=== PATIENT | female | born 1955 | race Caucasian/White ===

== ENCOUNTER 2025-08-03 09:10 | Outpatient (REF) | payer BC, SELFPAY ==
--- NOTE | ~2025-08-03 | XR_ITS ---
EXAMINATION: XR CHEST CLINICAL INFORMATION: R05.9 - Cough, unspecified COMPARISON: None available. TECHNIQUE: PA and lateral views FINDINGS: Pulmonary reticular pattern. No hyperinflation. No consolidation, pleural fissure pneumothorax. Cardiomediastinal silhouette size is normal. Calcified deformity mid thoracic spine multilevel thoracolumbar spondylosis. S-shaped curvature of the thoracic spine. Vascular clips right upper abdomen likely laparoscopic cholecystectomy. Patient's large body habitus/obesity. XR/XR chest 2V IMPRESSION: Probable chronic interstitial lung disease without acute airspace disease. Electronically signed by: Lucius Rosa MD 08/03/2025 10:42 AM EST
[2025-08-03 14:36] LABS: Resp Syncy Virus RNA Qual PCR NEGATIVE (Negative); SARS COV2 PCR INHOUSE NEGATIVE (Negative)
--- OUTSIDE RECORDS SUMMARY | 2025-08-03 14:44 | XMS_ITS | Data Portability ---
Author Organization [place] - [facility], Allergy Address [address] [place] [id number] Care Team Providers Care Director Experimental Medicine Name Role Phone GRACIELA CURRAN Referring Provider Assessment Encounter Date Assessment Date Assessment LastModified by Organization Details LastModified Time 03/06/2025 03/06/2025 normal audiometric testing was reviewed. exam is also benign with no effusion present. no specific intervention is advised at this time. communication strategies with her mother in a different room were discussed [email or web address] Not available 03/06/2025 11:24:02 Plan of Treatment Reminders Order Date Submit Date Provider Last Modified By Organization Details Last Modified Time Details Appointments None record ed. Lab None record ed. Referral None record ed. Procedures None record ed. Surgeries None record ed. Imaging None record ed. Medication Orders None record ed. Patient TargetsNo targets recorded. Patient InstructionsNo instructions recorded. Reason for Referral None Reported. Results Created Date Observation Date Name Description Value Unit Range Abnormal Flag Note LastModifiedBy Organization Detail LastModifiedTime 03/06/20 25 audio gram No observ ation record ed. BARCODE Not Available 2024 15:48:51 Result Notes None recorded. Problems Name Problem SNOMED Code Status Onset Date Resolution Date Notes Provider Name and Address Organization Details Recorded Time Abnormal auditory perception [id number] Active SOFI MARLOW [address] [address], [place], [phone] [facility] - [facility] 10:42:23 Problem Notes None recorded. Procedures Surgical History Date Name Laterality Status Provider Name and Address Organization Details Recorded Time 03/06/2025 Comp Audio with Tymps - 76448 & 83548 completed SOFI ALBA [address] [address], [place], [phone], [place] - [facility] 03/06/2025 10:42:10 Imaging Results None recorded. Procedure Notes None recorded. Medical Equipment None Reported. Allergies No known drug allergies Medications Name Sig Start Date Stop Date Status Note LastModified by Organization Details LastModified Time calc 166.6 mg-D3 4.15 mcg-mag ox 83.3 mg-ascorba te calc-K2-mi n capsule Take by oral route. active Not Available Not Available No t Available Vitals Date Recorded Body height Body mass index (BMI) Body weight Provider Name and Address Organization Details Last Updated DateTime 03/06/2025 162.56 cm 36 kg/m2 01548.4 g FELCIIA GUTIERREZ [place] - [facility] 03/06/2025 11:16:28 Social History None recorded. Functional Status Question Answer Note LastModified by Organizat ion Details LastModified Time What is your level of alcohol consumption? Occasional ccomi Information not available 03/06/2025 Mental Status None recorded. Family History Nothing Reported. Medical History Condition Response Allergies/Hayfever N Heart Problems N Anxiety N Tonsil Infections N Emphysema N Migraines N Thyroid Problems N Glaucoma N Developmental Delay N Depression N COPD N Nasal or Sinus Problems N Anemia N Immune System Disorder N Anesthesia Complications N Heart Attack (ID) N Other Skin Condition N Diabetes N Rhinitis N Bleeding Disorder N Food Allergy N Hearing Loss N Arthritis N Hyperlipidemia N Cancer N Stroke N Dementia N Nasal polyps N Asthma N Sleep Disorder N High Cholesterol N GERD/Reflux N Liver Disease N Headaches N Fibromyalgia N Hypertension N Speech Delay N Kidney Disease N Gynecological HistoryNo gynecological history recorded. Obstetrics History GPAL:G 0 P 0 0 0 0 Past Encounters Encounter ID Performer Location Encounter Start Date Encounter Closed Date Diagnosis/Indication Diagnosis SNOMED-CT Code Diagnosis ICD10 Code Diagnosis IMO Codes Diagnosis Note [id number] JIM GONCALVES MD [facility] [address] [place] [address] 03/06/2025 09:59:09 03/06/2025 12:02:44 Abnormal auditory perception [id number] H93.293 [id number] Audiologic al evaluation results: Right ear: Normal hearing with excellent word recognitio n. Left ear: Normal hearing with excellent word recognitio n. Tympanomet ry: Right Ear:Type A Left Ear:Type A Health Concerns Section Related Observation LastModified by Organization Detai ls LastModified Time None Recorded Concern Status LastModified by Organization Details LastModified Time None Recorded Advance Directives Directive None Recorded Payers Insurance Date Sequence Insurance Name Policy Number Policy Haddad Covered Member ID Haddad Member ID Guarantor Name 03/06/2025 1 [facility]: MEDICARE PPO BLUE (MEDICARE REPLACEMENT PPO) [id number] Diane Velásquez [id number] Diane Velásquez Notes Date Note Type Note Provider Name and Address Organization Details Recorded Time 03/06/2025 text/html ROS as noted in the HPI left ear hearing lossmuffled constantlyonset summer 2023not associated with head trauma, new meds, noise exposurelost in 2022 with some sleep disruptionno recent hearing test JIM GONCALVES MD [address] [place] [address], [phone], [place] - [facility] 03/06/2025 11:24:17 OBGyn Episode No OBEpisode recorded.
== END 2025-08-03 09:11 | disposition home or self-care (01) ==
LOC: HO.HMGCX 09:10
PROVIDERS: Visit Provider Physician Assistant Medical
DX: R09.89 Other specified symptoms and signs involving the circulatory and respiratory systems (principal); R05.9 Cough, unspecified
CPT/HCPCS: 71046; 87637

== ENCOUNTER 2025-08-03 09:10 | Outpatient (AMB) | payer BC, SELFPAY ==
--- NOTE | 2025-08-03 09:17 | MHC.OFFWIV ---
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 Allergies No Known Allergies Allergy (Verified 08/03/25 09:25) HPI HPI Comments History of Present Illness Details History - The patient is a 69 year old individual presenting with symptoms of an upper respiratory infection. - The patient has been experiencing aches, pains, watery eyes, and a runny nose since last Thursday, with the cough being the most prominent symptom. - The cough is severe enough to cause discomfort in the patient's ribs when she coughs, but there is no associated fever or colored sputum. - The patient has a history of smoking but no history of asthma. - The patient reports chest tightness when she coughs. - She denies sick contacts, fever, chills, abd pain, n/v/d, recent travel, or smoking. Physical Exam General: Cooperative, healthy appearing, comfortable and no acute distress Orientation/consciousness: Patient oriented x3 Limitations: No limitations Head: Normal to inspection Ears: Hearing grossly normal bilaterally, external ears normal and TM's normal bilaterally Nose: Normal external nose present, normal nares present, and no nasal discharge present. Patient reports runny nose and soreness. Face and sinus: Sinuses nontender to palpation. Mouth: Normal oral and palatal mucosa present and moist mucous membranes noted. Throat: Tonsils normal. Uvula is midline. Posterior oropharynx with dryness and no exudates. Eyes: Appearance normal, both eyes and all related structures. Patient reports watery eyes. Neck: Normal visual inspection, full ROM. No lymphadenopathy noted. Respiratory: Clear to auscultation bilaterally. Normal respiratory effort, able to speak in complete sentences. No respiratory distress, not tachypneic, no tripod positioning and no use of accessory muscles. Patient reports cough and chest tightness. Cardiovascular: Regular rate and rhythm. Normal S1 and S2 Skin: No rashes or lesions noted Patient was informed and verbally consented to the use of an ambient scribe for clinic note documentation during this visit Review of Systems Const All systems reviewed & are unremarkable except as noted in HPI and below Physical Exam Vital Signs: Last Vital Signs Temp 97.8 F 08/03/25 09:22 Pulse 70 08/03/25 09:22 BP 130/90 H 08/03/25 09:22 Pulse Ox 96 08/03/25 09:22 Oxygen Delivery Method Room Air 08/03/25 09:22 BMI result Body Mass Index 37.9 Results Reviewed Results Reviewed: will review the xray in the office Assessment & Plan Assessment & Plan (1) URI with cough and congestion: Code(s): J06.9 - Acute upper respiratory infection, unspecified Plan Most likely URI vs pneumonia vs covid vs flu vs RSV plan - Prescribed cough medicine, prednisone, and an inhaler to manage symptoms. - Recommended chest x-ray to confirm diagnosis. - If pneumonia is confirmed, plan to prescribe antibiotics. - tylenol or motrin as needed for pain - follow up with PCP Orders: Orders SARS-CoV2/FLU/RSV Today R09.89 - Other specified symptoms and signs involving the circulatory and respiratory systems XR chest 2V Today R05.9 - Cough, unspecified Medications: New prednisone 40 mg (2 x 20 mg) PO DAILY 10 tabs 0RF 5 days albuterol sulfate 90 mcg/actuation 2 puffs inhalation Q6H PRN 8.5 grams 0RF shortness of breath or wheezing or cough benzonatate 100 mg PO bid-tid PRN 21 caps 0RF Cough 7 days Coding Level of Care Code Est Pt Level 4 (46481) Diagnoses URI with cough and congestion J06.9
[2025-08-03 09:22] VITALS: BP 130/90; PULSE 70; TEMP 36.6; O2SAT 96; BMI 37.9
== END 2025-08-03 10:19 | disposition home or self-care (01) ==
PROVIDERS: Visit Provider Physician Assistant Medical
DX: J06.9 Acute upper respiratory infection, unspecified (principal)

== ENCOUNTER → 2025-08-03 10:14 | Outpatient (BNV) | payer BC, SELFPAY | PROVIDERS: Visit Provider Radiology Diagnostic Radiology | DX: R05.9 Cough, unspecified (principal) | CPT/HCPCS: 71046 ==